=== PATIENT | female | born 1975 | race Caucasian/White ===

== ENCOUNTER 2019-07-25 07:47 | Inpatient (IN) ==
[2019-07-25] MEDS ORDERED: hydrOXYzine pamoate 25 MG CAPSULE PO PRN (11:41)
[2019-07-25] MEDS ORDERED: Mag Hydrox/Al Hydrox/Simeth 30 ML UDC PO PRN (11:41)
[2019-07-25] MEDS ORDERED: MOM Conc 10 ML UD.LIQ PO PRN (11:41)
[2019-07-25] MEDS ORDERED: *HR* LORazepam 2 MG/ML VIAL IM PRN (11:41)
[2019-07-25] MEDS ORDERED: haloperidoL 5 MG TABLET PO PRN (11:41)
[2019-07-25] MEDS ORDERED: Haloperidol Lactate 5 MG/ML VIAL IM PRN (11:41)
[2019-07-25] MEDS ORDERED: Acetaminophen 325 MG TABLET PO PRN (11:41)
[2019-07-25] MEDS ORDERED: traZODone 50 MG TABLET PO PRN (11:41)
[2019-07-25] MEDS ORDERED: *HR* LORazepam 1 MG TABLET PO PRN (11:41)
[2019-07-27] MEDS: Sulfamethoxazole/Trimeth DS 1 EACH TABLET PO SCH (20:52)
[2019-07-27] MEDS: ARIPiprazole 2 MG TABLET PO SCH (20:52)
[2019-07-28] MEDS: Sulfamethoxazole/Trimeth DS 1 EACH TABLET PO SCH ×2 (09:46→21:50)
[2019-07-28] MEDS: ARIPiprazole 2 MG TABLET PO SCH (21:50)
[2019-07-29] MEDS: Sulfamethoxazole/Trimeth DS 1 EACH TABLET PO SCH (09:43)
[2019-07-29 10:30] VITALS: BP 118/89
== END 2019-07-29 13:47 | disposition home or self-care (01) ==
LOC: EMEROOARM 07:47 → INTOOBSV 11:15 → 1ANU 11:15 → UNDODISIN 13:27 → 1ANU 13:36 → SUATTDRO 07-26 11:01
PROVIDERS: ADMIT Psychiatry & Neurology Psychiatry; ATTEND Psychiatry & Neurology Psychiatry